=== PATIENT | female | born 1955 | race Caucasian/White ===

== ENCOUNTER 2017-12-30 08:11 | Outpatient (CLI) | payer OTHER ==
--- NOTE | 2017-12-31 08:21 | Mammography Report ---
BILATERAL DIGITAL SCREENING MAMMOGRAM with CAD: 12/30/17 08:11:00 CLINICAL: Routine screening. COMPARISON:08/28/16 FINDINGS: There are scattered areas of fibroglandular density. No mass, architectural distortion or suspicious calcifications. IMPRESSION: No mammographic evidence of malignancy. BI-RADS CATEGORY: 2 -- Benign RECOMMENDATION: Routine mammographic screening in one year. COMMENT: Patient follow-up letters are generated by our [employer] application.
== END 2017-12-30 08:12 | disposition home or self-care (01) ==
LOC: SPVWC 08:11
PROVIDERS: ATTEND Family Medicine
DX: Z12.31 Encounter for screening mammogram for malignant neoplasm of breast (principal)
CPT/HCPCS: 77067

== ENCOUNTER 2018-04-08 06:13 | Day surgery (SDC) | payer OTHER ==
[~2018-04-08 06:13] MED LIST: ANCEF/STERILE WATER 2 GM/20 ML IV NR; HEPARIN SUB-Q NR; MARCAINE 0.5% INFILTRATI ONE
[2018-04-08] MEDS ORDERED: NACL BACTERIOSTATIC INFILTRATI ONE (06:54)
[2018-04-08] MEDS ORDERED: LACTATED RINGERS 1,000 ML ONE (06:54)
--- NOTE | 2018-04-08 07:07 | Anesthesia Consultation ---
Anesthesia Consult and Med Hx Date of service: 04/08/18 - Airway Anesthetic Teeth Evaluation: Good ROM Head & Neck: Adequate Mental/Hyoid Distance: Inadequate (2.5FB) Mallampati Class: Class III Intubation Access Assessment: Possibly Difficult - Pulmonary Exam CTA: Yes - Cardiac Exam Cardiac Exam: RRR - Pre-Operative Health Status ASA Pre-Surgery Classification: ASA2 Proposed Anesthetic Plan: General - Pulmonary Hx Smoking: No SOB: No - Cardiovascular System Hx Hypertension: Yes (ACEi/HCTZ) - Central Nervous System Hx Neuromuscular Disorder: No - Gastrointestinal Hx Gastroesophageal Reflux Disease: No - Endocrine Hx Non-Insulin Dependent Diabetes: No - Other Systems Hx Substance Use: No
--- NOTE | 2018-04-08 07:08 | Anesthesia Day of Surgery ---
Anesthesia Day of Surgery - Day of Surgery Patient Examined: Yes Patient H&P Reviewed: Yes Patient is NPO: Yes
[2018-04-08] MEDS ORDERED: VERSED IV PRN (07:09)
[2018-04-08] MEDS ORDERED: PERCOCET 5/325 PO PRN ×2 (07:09→10:28)
[2018-04-08] MEDS ORDERED: ZOFRAN IV PRN (07:09)
[2018-04-08] MEDS ORDERED: MARCAINE 0.5% 30 ML INFILTRATI ONE (07:11)
[2018-04-08 07:25] LABS: BUN/Creatinine Ratio 60; Blood Urea Nitrogen 18 mg/dL (7-17); Calcium 9.2 mg/dL (8.4-10.2); Hemolysis Index 32
[2018-04-08] MEDS ORDERED: XYLOCAINE MPF 2% ONE (07:27)
[2018-04-08] MEDS ORDERED: SUBLIMAZE ONE ×2 (07:27→08:10)
[2018-04-08] MEDS ORDERED: ZEMURON IV ONE (07:27)
[2018-04-08] MEDS ORDERED: DIPRIVAN 10 MG/ML IV ONE (07:29)
[2018-04-08] MEDS ORDERED: TRANSDERM-SCOP TD NR (08:00)
[2018-04-08] MEDS ORDERED: PEPCID IV NR (08:00)
[2018-04-08] MEDS ORDERED: LACTATED RINGERS 1,000 ML IV SCH (08:00)
[2018-04-08] MEDS ORDERED: DECADRON IV NR (08:00)
[2018-04-08] MEDS ORDERED: NORMODYNE IV ONE (08:10)
[2018-04-08] MEDS ORDERED: DECADRON ONE (08:10)
[2018-04-08] MEDS ORDERED: ZOFRAN ONE (08:10)
[2018-04-08] MEDS ORDERED: ePHEDrine 50 MG/5 ML-0.9% NACL IV ONE (08:58)
[2018-04-08] MEDS ORDERED: BLOXIVERZ ONE (09:21)
[2018-04-08] MEDS ORDERED: ROBINUL ONE (09:21)
[2018-04-08] MEDS ORDERED: QUELICIN ONE (09:30)
[2018-04-08] MEDS: DILAUDID IV PRN ×2 (09:42→09:54)
--- NOTE | 2018-04-08 09:44 | Short Stay Summary ---
Short Stay Documentation Date of service: 04/08/18 Narrative H&P: DICTATED - History H&P: dictated - Allergies and Medications Current Medications: Allergies iodine Allergy (Verified 04/08/18 06:30) Hives Home Medications Medication Instructions Recorded Confirmed Last Taken Type ALBUTEROL Inhaler [Proair] 2 puff IH QID PRN 04/08/18 04/08/18 Unknown History Lisinopril/Hydrochlorothiazide 1 tab PO QDAY 04/08/18 04/08/18 04/07/18 13:00 History [Zestoretic 10-12.5 mg] Active Medications Cefazolin Sodium (Ancef/Sterile Water 2 Gm/20 Ml) 2 gm IV PREOP NR Stop: 04/08/18 23:59 Dexamethasone (Decadron) 4 mg IV PREOP NR Stop: 04/08/18 23:59 Last Admin: 04/08/18 07:25 Dose: 4 mg Famotidine (Pepcid) 20 mg IV PREOP NR Stop: 04/08/18 23:59 Heparin Sodium (Porcine) (Heparin) 5,000 unit SUB-Q PREOP NR Stop: 04/08/18 23:59 Last Admin: 04/08/18 07:28 Dose: 5,000 unit Hydromorphone HCl (Dilaudid) 0.5 mg IV Q10MIN PRN PRN Reason: Pain , Severe (7-10) Stop: 04/08/18 23:59 Lactated Ringer's (Lactated Ringers) 1,000 mls @ 42 mls/hr IV DIRECT SACHIN Last Admin: 04/08/18 07:24 Dose: 42 mls/hr Midazolam HCl (Versed) 2 mg IV PREOP PRN PRN Reason: Anxiety Stop: 04/08/18 23:59 Ondansetron HCl (Zofran) 4 mg IV ONCE PRN PRN Reason: Nausea And Vomiting Stop: 04/08/18 23:59 Oxycodone/Acetaminophen (Percocet 5/325) 1 tab PO ONCE PRN PRN Reason: Pain, Moderate (4-6) Stop: 04/08/18 23:59 Scopolamine (Transderm-Scop) 1 each TD PREOP NR Stop: 04/11/18 07:59 Last Admin: 04/08/18 07:25 Dose: 1 each - Physical exam General appearance: no acute distress, well-nourished HEENT: PERRLA, EOMI Lungs: Clear to auscultation Breasts: deferred Heart: Regular rate Gastrointestinal: other (As expected for post-op) Female Genitourinary: deferred Rectal Exam: deferred - Brief post op/procedure progress note Date of procedure: 04/08/18 Pre-op diagnosis: cholelithiasis and billiary colic Post-op diagnosis: same Procedure: Laparoscopic cholecystectomy and extensive lysis of adhesions Anesthesia: GETA Findings: Extensive adhesions Surgeon: SWAPNA DICKSON Senior Windows Engineer: BEA ANDERSON Estimated blood loss: 50-100ml Pathology: none Specimen disposition: to lab Condition: stable - Disposition Condition at discharge: Stable Disposition: DC-01 TO HOME OR SELFCARE - Discharge Diagnoses (1) Cholecystitis Status: Resolved Short Stay Discharge Plan Weight Bearing Status: Weight Bear as Tolerated Diet: regular Wound: keep clean and dry Follow up with: MARY KATE DE PAZ MD [Primary Care Provider] - 7 Days Prescriptions: oxyCODONE /ACETAMINOPHEN [Percocet 5/325 mg] 1 tab PO ONCE PRN #30 tablet PRN Reason: Pain, Moderate (4-6)
[2018-04-08] MEDS ORDERED: TORADOL IV PRN (10:01)
--- NOTE | 2018-04-08 10:51 | Operative Report ---
PREOPERATIVE DIAGNOSES: Biliary colic and cholelithiasis. POSTOPERATIVE DIAGNOSES: Biliary colic and cholelithiasis. PROCEDURE: Laparoscopic cholecystectomy and extensive lysis of adhesions. ATTENDING SURGEON: Daron Ya M.D. KERFER MACHINE OPERATOR: Colette Curry M.D. ESTIMATED BLOOD LOSS: 50 mL. ANESTHESIA: General endotracheal anesthesia. COMPLICATIONS: None. EXPECTED SPECIMENS: Gallbladder. INDICATIONS FOR PROCEDURE: The patient is a 62-year-old female patient who has been presenting with right upper quadrant abdominal pain, especially after eating and workup has demonstrated a biliary etiology. We have explained the pathology to the patient, the proposed procedure as well as the alternatives. We also presented the possibility of complications including but not limited to bleeding, infection, injury to surrounding tissues and need for other operations. The patient understood these terms and signed an informed consent, which was witnessed and saved in the chart. PROCEDURE IN DETAIL: The patient was taken back to the OR where she was placed supine on the operating room table. Bilateral lower extremity compression devices were placed and a dose of preoperative antibiotics was given. We proceeded to prep and drape the abdomen, was prepped in the usual sterile fashion. At this point, a timeout was taken to verify the correct patient, the correct procedure and the correct site. Once all of this had been done and everyone in the room was in agreement, we began our procedure by making a left upper quadrant small 2 mm incision. A Veress needle was then passed through this and insufflation attempted. Insufflation obtained 250 mmHg. At this point, a periumbilical incision was then made and we proceeded to use the Optiview entry with a nonbladed trocar under direct visualization. Once inside the abdomen, It was seen that there were massive amounts of adhesions and this is a generalized area, for which reason we then proceeded to place another 5 mm port in the right lateral abdomen. This was done with direct visualization from the umbilical port site. After doing this, we proceeded to move the camera to the right side of the body to explore these adhesions. It was deemed to be very dense adhesions from that side and on the on the left side of the abdomen there seemed to be a clear path for additional ports. With this in mind, we proceeded to extend the 2 mm incision was made in the left upper quadrant into a 10 mm incision and a 10 mm nonbladed trocar was then placed through this port, followed by another 5 mm left side of the lower abdomen port. We proceeded to perform an extensive lysis of adhesions using EndoShears ensuring to stay away from any bowel. The lysis of adhesions went as expected with no enterotomies performed and at that point, we were able to visualize the gallbladder. The gallbladder did have some adhesions of the surrounding stomach and colon. These were taken down sharply to free up the gallbladder. The trocars were then inspected to ensure no inadvertent enterotomies were created and at this point being confident that there was no injury, we proceeded to place another right-sided abdominal trocar, 5 mm in diameter. With these trocars in place now, we proceeded to use the 2 graspers to lift off the gallbladder and exposed it. An electrocautery was then used to dissect the gallbladder from the gallbladder fossa in a dome down approach. Once done at the infundibulum, we proceeded to use the graspers again to expose Calot's triangle and a combination of [place] and L-hook cautery was used to isolate the cystic duct as well as the cystic artery. Once these two structures were isolated, we proceeded to use clips and once the cystic duct and cystic artery were adequately cleared, we proceeded to transect these with the EndoShears. The electrocautery was then used to finish taken off the gallbladder from the gallbladder fossa and placed it in an EndoCatch. There was a cholecystotomy performed during the manipulation of the gallbladder. Any spillage was cleaned up with the [place] suction commercial credit head and any stones were picked up using graspers. Once safely in the EndoCatch bag, the gallbladder was removed through the 10 mm left-sided abdominal port and passed off to the specimen table. At this point, we proceeded to inspect the gallbladder fossa for any bleeding or retained stones. One retained stone was removed. Irrigation was undertaken until no bleeding could be seen. We then performed one last look to inspect the entirety of the bowel and abdominal wall to ensure no enterotomies had been performed, we removed all trocars under direct visualization and proceeded to close the 10 mm port site with a 0 Vicryl stitch at the fascia level and 4-0 Vicryls at the skin level and skin glue. The patient tolerated the procedure well and was sent to the PACU unit. JOB# [id number] JASON/DEAN
[2018-04-08 13:49] VITALS: BP 100/48
--- NOTE | 2018-04-11 05:59 | Post Anesthesia Evaluation ---
- Post Anesthesia Evaluation Patient Participated: Yes Airway Patent: Yes Stable Respiratory Function: Yes Nausea/Vomiting: No Temp > 96.8F: Yes Pain Manageable: Yes Adequeate Hydration: Yes Anesthesia Complications: No Block Receding Appropriately: Not Applicable Patient on Ventilator: No
== END 2018-04-08 12:15 | disposition home or self-care (01) ==
LOC: OR 06:13
PROVIDERS: ATTEND Surgery
DX: K80.64 Calculus of gallbladder and bile duct with chronic cholecystitis without obstruction (principal); I10 Essential (primary) hypertension; I25.2 Old myocardial infarction; J45.909 Unspecified asthma, uncomplicated; Z85.038 Personal history of other malignant neoplasm of large intestine; Z91.041 Radiographic dye allergy status; Z98.890 Other specified postprocedural states
CPT/HCPCS: 36415; 44180; 47562; 80048; 88304; J0330; J0690; J1100; J1170; J1644; J1885; J2405; J2704; J2710; J3010; J7120; J2250

== ENCOUNTER 2019-03-10 09:48 | Outpatient (CLI) | payer MEDICARE, OTHER ==
--- NOTE | 2019-03-10 10:36 | Mammography Report ---
Screening mammogram: Routine views are compared to prior exams dating back to August 2016. There is a heterogeneously dense fibroglandular pattern in a symmetric distribution. The left breast pattern is stable. There is a circumscribed nodule in the upper-outer right breast and a much smaller nodule more anterior in position. These are unchanged. In the slightly lateral mid breast better seen in CC view there is a new nodular density which is questionably seen in the MLO projection. No other findings of significance are noted. CAD used. Impression: New right breast asymmetry. Recommendation: Additional right mammogram imaging with ultrasound as needed. BI-RADS CATEGORY: 0 = Needs additional imaging evaluation ACR BI-RADS MAMMOGRAPHIC CODES: 0 = Needs additional imaging evaluation; 1 = Negative; 2 = Benign; 3 = Probably benign; 4 = Suspicious; 5 = Malignant; 6 = Known biopsy-proven malignancy COMMENT: 1. Dense breast tissue, i.e., adenosis, fibrocystic changes, etc., may obscure an underlying neoplasm. 2. Approximately 10% of cancers are not detected with mammography. 3. A negative mammography report should not delay biopsy if a clinically suspicious mass is present.
== END 2019-03-10 09:49 | disposition home or self-care (01) ==
LOC: SPVWC 09:48
PROVIDERS: ATTEND Internal Medicine
DX: Z12.31 Encounter for screening mammogram for malignant neoplasm of breast (principal); J45.909 Unspecified asthma, uncomplicated; I10 Essential (primary) hypertension; Z90.710 Acquired absence of both cervix and uterus
CPT/HCPCS: 77067